=== PATIENT | female | born 1960 | race Hispanic/Latino ===

== ENCOUNTER → 2020-11-01 | Outpatient (CLI) | payer OTHER | END | disposition home or self-care (01) | LOC: OIH 13:26 | PROVIDERS: ATTEND Internal Medicine | DX: M85.871 Other specified disorders of bone density and structure, right ankle and foot (principal); M20.11 Hallux valgus (acquired), right foot; M20.12 Hallux valgus (acquired), left foot; M20.032 Swan-neck deformity of left finger(s); M20.031 Swan-neck deformity of right finger(s); M13.842 Other specified arthritis, left hand; M13.841 Other specified arthritis, right hand | CPT/HCPCS: 73630 ==